=== PATIENT | male | born 1995 | race Hispanic/Latino ===

== ENCOUNTER 2023-06-18 15:59 | Emergency (ER) | payer BC, SELFPAY | END 2023-06-18 18:27 | disposition home or self-care (01) | LOC: ERS 15:59 | DX: F41.0 Panic disorder [episodic paroxysmal anxiety] (principal); R07.9 Chest pain, unspecified | CPT/HCPCS: 71045; 93005 ==

== ENCOUNTER 2024-12-27 23:36 | Emergency (ER) | payer SELFPAY | END 2024-12-28 00:57 | disposition home or self-care (01) | LOC: ERS 23:36 | DX: L03.116 Cellulitis of left lower limb (principal) ==